=== PATIENT | male | born 1980 | race African-American/Black ===

== ENCOUNTER 2016-07-03 01:19 | Emergency (ER) | payer MEDICAID ==
[2016-07-03 01:32] VITALS: BP 145/79
[2016-07-03] MEDS ORDERED: ACETAMINOPHEN 325 MG TABLET PO ONE (03:10)
[2016-07-03] MEDS ORDERED: FAMOTIDINE 20 MG TABLET PO ONE (03:10)
[2016-07-03] MEDS ORDERED: ONDANSETRON 4 MG TAB.RAPDIS PO ONE (03:10)
[2016-07-03] MEDS ORDERED: ONDANSETRON ODT 4 MG TAB (6 TAB/DSPK) PO PRN (04:31)
--- NOTE | 2016-07-03 04:51 | ER Document Report ---
ED General - General Chief Complaint: Nausea Stated Complaint: BLOOD PRESSURE PROBLEMS Notes: Patient is a 35-year-old male that comes emergency department with chief complaint of nausea, fever, chills, and body aches. Symptoms started today. Patient states that both his daughter and son had similar symptoms with vomiting. He denies diarrhea, denies any current locations of abdominal pain, denies flank pain, denies headache, denies cough. Patient denies any daily medications or any past medical history. TRAVEL OUTSIDE OF THE [place] IN LAST 30 DAYS: No - Related Data Allergies/Adverse Reactions: No Known Allergies Allergy (Unverified 08/12/15 19:01) Past Medical History - General Information source: Patient - Social History Smoking Status: Never Smoker Chew tobacco use (# tins/day): No Frequency of alcohol use: None Drug Abuse: None Lives with: Family Family History: Reviewed & Not Pertinent, Arthritis, Hypertension Patient has suicidal ideation: No Patient has homicidal ideation: No - Medical History Medical History: Negative Renal/ Medical History: Denies: Hx Peritoneal Dialysis Surgical Hx: Negative - Immunizations Hx Diphtheria, Pertussis, Tetanus Vaccination: No Review of Systems - Review of Systems Constitutional: See HPI EENT: No symptoms reported Cardiovascular: No symptoms reported Respiratory: No symptoms reported Gastrointestinal: See HPI Genitourinary: No symptoms reported Male Genitourinary: No symptoms reported Musculoskeletal: See HPI Skin: No symptoms reported Hematologic/Lymphatic: No symptoms reported Neurological/Psychological: No symptoms reported Physical Exam - Vital signs Vitals: Temp Pulse Resp BP Pulse Ox 99.6 F 77 18 145/79 H 98 07/03/16 01:31 07/03/16 01:31 07/03/16 01:31 07/03/16 01:31 07/03/16 01:31 Interpretation: Normal - General General appearance: Alert In distress: None - Patient appears slightly under the weather with Dr. desai under his eyes and a few episodes of chills, otherwise he is alert and well- appearing - HEENT Head: Normocephalic, Atraumatic Eyes: Normal Conjunctiva: Normal Extraocular movements intact: Yes Eyelashes: Normal Pupils: PERRL Mouth/Lips: Normal Mucous membranes: Normal Pharynx: Normal Neck: Normal - Respiratory Respiratory status: No respiratory distress Chest status: Nontender Breath sounds: Normal. No: Decreased air movement, Nonproductive cough, Productive cough, Wheezing Chest palpation: Normal - Cardiovascular Rhythm: Regular. No: Tachycardia Heart sounds: Normal auscultation, S1 appreciated, S2 appreciated Murmur: No - Abdominal Inspection: Normal Distension: No distension Bowel sounds: Normal Tenderness: Nontender. No: Tender - Completely nontender abdomen Organomegaly: No organomegaly - Back Back: Normal, Nontender. No: Tender - Extremities General upper extremity: Normal inspection, Nontender, Normal color, Normal ROM , Normal temperature General lower extremity: Normal inspection, Nontender, Normal color, Normal ROM , Normal temperature, Normal weight bearing. No: Deborah's sign - Neurological Neuro grossly intact: Yes Cognition: Normal Orientation: AAOx4 [place] Coma Scale Eye Opening: Spontaneous [place] Coma Scale Verbal: Oriented Rakel Coma Scale Motor: Obeys Commands [place] Coma Scale Total: 15 Speech: Normal Motor strength normal: LUE, RUE, LLE, RLE Sensory: Normal - Psychological Associated symptoms: Normal affect, Normal mood - Skin Skin Temperature: Warm Skin Moisture: Dry Skin Color: Normal Course - Re-evaluation Re-evalutation: Very unremarkable physical exam, patient with multiple sick contacts in his family, after Tylenol, Zofran, Pepcid patient drinking fluids and states he feels that his symptoms has resolved. He states he feels great. Suspect viral syndrome. Discussed return precautions. Patient states understanding and agreement. - Vital Signs Vital signs: Temp Pulse Resp BP Pulse Ox 99.6 F 77 18 145/79 H 98 07/03/16 01:31 07/03/16 01:31 07/03/16 01:31 07/03/16 01:31 07/03/16 01:31 Discharge - Discharge Clinical Impression: Nausea, Body aches Condition: Stable Disposition: HOME, SELF-CARE Additional Instructions: Physical exam and symptoms are most suggestive of a viral syndrome. Take the nausea medication, drink plenty of fluids, take either ibuprofen or Tylenol for fever and body aches, rest. Follow-up with primary care. Return to the emergency department for any concerning or worsening symptoms. Prescriptions: Promethazine HCl [Phenergan 25 mg Tablet] 1 - 2 tab PO Q6H PRN #20 tablet PRN Reason: Forms: Return to Work, Elevated Blood Pressure
== END 2016-07-03 04:55 | disposition home or self-care (01) ==
LOC: ER 01:19
DX: R11.0 Nausea (principal); R50.9 Fever, unspecified; R52 Pain, unspecified
CPT/HCPCS: 99283; J3490 ×2; S0119

== ENCOUNTER 2018-01-11 17:57 | Emergency (ER) | payer SELFPAY ==
[2018-01-11 18:11] VITALS: BP 127/77
[2018-01-11] MEDS ORDERED: IBUPROFEN 800 MG TABLET PO ONE (19:29)
--- NOTE | 2018-01-11 19:33 | ER Document Report ---
ED Extremity Problem, Upper - General Chief Complaint: Shoulder Pain Stated Complaint: SHOULDER PAIN Time Seen by Provider: 01/11/18 19:08 Mode of Arrival: Ambulatory Information source: Patient Notes: 37-year-old male presented ED for complaint of right shoulder pain. He states that he has had pain to her and he uses his right shoulder all the time. He states she has had pain in this area for about 6 months but is been worse for the last couple days. He states he has not fallen or done any acute injuries to the shoulder. He states it is just very difficult to do his job due to the pain. He states he has not taken any [id number] medications today. He has alert oriented respirations regular and unlabored talking in full sentences and walks with a even steady gait. Patient is in no acute distress at this time. TRAVEL OUTSIDE OF THE [place] 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 - Related Data Allergies/Adverse Reactions: No Known Allergies Allergy (Verified 01/11/18 18:09) Past Medical History - General Information source: Patient - Social History Smoking Status: Former Smoker Cigarette use (# per day): No Chew tobacco use (# tins/day): No Smoking Education Provided: No Frequency of alcohol use: None Drug Abuse: Marijuana Occupation: [employer] Lives with: Spouse/Significant other Family History: Reviewed & Not Pertinent, Arthritis, Hypertension Patient has suicidal ideation: No Patient has homicidal ideation: No - Past Medical History Cardiac Medical History: Reports: None Pulmonary Medical History: Reports: None EENT Medical History: Reports: None Neurological Medical History: Reports: None Endocrine Medical History: Reports: None Renal/ Medical History: Reports: None Malignancy Medical History: Reports None GI Medical History: Reports: None Musculoskeletal Medical History: Reports Hx Musculoskeletal Trauma Skin Medical History: Reports None Psychiatric Medical History: Reports: None Traumatic Medical History: Reports: Hx Fractures - Fractured ankle thumb wrist and hand. He states he had surgery on the hand Infectious Medical History: Reports: None Past Surgical History: Reports: Hx Orthopedic Surgery - Right hand - Immunizations Hx Diphtheria, Pertussis, Tetanus Vaccination: No Review of Systems - Review of Systems Constitutional: No symptoms reported EENT: No symptoms reported Cardiovascular: No symptoms reported Respiratory: No symptoms reported Gastrointestinal: No symptoms reported Genitourinary: No symptoms reported Male Genitourinary: No symptoms reported Musculoskeletal: Joint pain - Right shoulder, Joint swelling - Shoulder, Muscle pain, Muscle stiffness Skin: No symptoms reported Hematologic/Lymphatic: No symptoms reported Neurological/Psychological: No symptoms reported -: Yes All other systems reviewed and negative Physical Exam - Vital signs Vitals: Temp Pulse Resp BP Pulse Ox 98.5 F 72 20 127/77 H 100 01/11/18 18:10 01/11/18 18:10 01/11/18 18:10 01/11/18 18:10 01/11/18 18:10 Interpretation: Normal - General General appearance: Appears well, Alert - HEENT Head: Normocephalic, Atraumatic Eyes: Normal Pupils: PERRL - Respiratory Respiratory status: No respiratory distress Chest status: Nontender Breath sounds: Normal Chest palpation: Normal - Cardiovascular Rhythm: Regular Heart sounds: Normal auscultation Murmur: No - Abdominal Inspection: Normal Distension: No distension Bowel sounds: Normal Tenderness: Nontender Organomegaly: No organomegaly - Back Back: Normal, Nontender - Extremities General upper extremity: Normal inspection, Normal color, Normal ROM, Normal temperature General lower extremity: Normal inspection, Nontender, Normal color, Normal ROM , Normal temperature, Normal weight bearing. No: Deborah's sign Shoulder: Tender. No: Abrasion, Deformity, Dislocation, Ecchymosis, Instability , Laceration, Limited ROM - Neurological Neuro grossly intact: Yes Cognition: Normal Orientation: AAOx4 [place] Coma Scale Eye Opening: Spontaneous [place] Coma Scale Verbal: Oriented Rakel Coma Scale Motor: Obeys Commands [place] Coma Scale Total: 15 Speech: Normal Motor strength normal: LUE, RUE, LLE, RLE Sensory: Normal - Psychological Associated symptoms: Normal affect, Normal mood - Skin Skin Temperature: Warm Skin Moisture: Dry Skin Color: Normal Course - Re-evaluation Re-evalutation: 01/11/18 20:06 X-rays were negative. X-rays reports discussed with patient and written report given the patient to follow-up with primary doctor and orthopedics. Patient will be treated with ibuprofen in the emergency room and discharged home with prescription for ibuprofen. She verbalizes understanding and agreement with treatment plan. - Vital Signs Vital signs: Temp Pulse Resp BP Pulse Ox 98.5 F 72 20 127/77 H 100 01/11/18 18:10 01/11/18 18:10 01/11/18 18:10 01/11/18 18:10 01/11/18 18:10 - Diagnostic Test Radiology reviewed: Image reviewed, Reports reviewed Discharge - Discharge Clinical Impression: Right shoulder pain Qualifiers: Chronicity: chronic Qualified Code(s): M25.511 - Pain in right shoulder Condition: Stable Disposition: HOME, SELF-CARE Additional Instructions: You were seen today for persistent pain in your right shoulder. You state you use this shoulder constantly for your job. You need to follow-up with orthopedics to find out why you are having this much pain in your right shoulder as this is your livelihood. Use ibuprofen for the pain. Will decrease the inflammation. Exercise Program for the Shoulder Since the shoulder moves in so many directions, the joint attachment is weak. Muscles provide most of the stability to the shoulder. You must exercise your shoulder to prevent painful instability or stiffening. PASSIVE - These may be begun within a few days of the injury. While standing, lean forward, allowing the arm to hang down towards the floor. Move the arm in small circles while slowly twisting your chest towards and away from the hanging arm. Do this for one minute. ACTIVE - These may be performed when the doctor gives permission. Begin with the arms at the sides. Raise the arms forward (shoulder's width apart) until they reach shoulder level. Then slowly swing both arms back until they are aiming straight out away from each other. Then bring them forward again, and finally, lower them to your sides. Repeat 20 to 30 times. As you improve, put weights in your hands for the exercise. Start with one pound, and work up to 10 pounds. Never use more than is comfortable. Athletes may work up to 30 pounds. FOLLOW-UP CARE: If you have been referred to a physician for follow-up care, call the physician s office for an appointment as you were instructed or within the next two days. If you experience worsening or a significant change in your symptoms, notify the physician immediately or return to the Emergency Department at any time for re-evaluation. Prescriptions: Ibuprofen 800 mg PO Q8HP PRN #14 tablet PRN Reason: Forms: Elevated Blood Pressure, Return to Work Referrals: AMARILIS VELEZ MD [ACTIVE STAFF] - Follow up as needed
--- NOTE | 2018-01-11 20:02 | RADIOLOGY REPORT (SQ) ---
EXAM DESCRIPTION: SHOULDER RIGHT 2 OR MORE VIEWS COMPLETED DATE/TIME: 01/11/2018 7:54 pm REASON FOR STUDY: pain COMPARISON: None. NUMBER OF VIEWS: Three views. TECHNIQUE: Internal rotation, external rotation, and Y view images acquired of the right shoulder. LIMITATIONS: None. FINDINGS: MINERALIZATION: Normal. BONES: No acute fracture or dislocation. No worrisome bone lesions. JOINTS: No dislocation. VISUALIZED LUNGS AND RIBS: No pneumothorax. No rib fracture. SOFT TISSUES: No radiopaque foreign body. OTHER: No other significant finding. IMPRESSION: NEGATIVE STUDY OF THE RIGHT SHOULDER. NO RADIOGRAPHIC EVIDENCE OF ACUTE INJURY. TECHNICAL DOCUMENTATION: JOB ID: [id number] [employer]- All Rights Reserved Reading location - IP/workstation name: [email or web address]
== END 2018-01-11 20:27 | disposition home or self-care (01) ==
LOC: ER 17:57
DX: G89.29 Other chronic pain (principal); M25.511 Pain in right shoulder; M25.611 Stiffness of right shoulder, not elsewhere classified; F12.10 Cannabis abuse, uncomplicated; Z87.81 Personal history of (healed) traumatic fracture; Z98.890 Other specified postprocedural states; Z82.61 Family history of arthritis
CPT/HCPCS: 99283